=== PATIENT | female | born 1995 | race Caucasian/White ===

== ENCOUNTER → 2020-01-12 | Outpatient (CLI) | payer SELFPAY ==
--- NOTE | 2020-01-12 18:31 | Diagnostic Imaging Report ---
PROCEDURE: MRI left joint lower extremity without contrast. TECHNIQUE: Multiplanar, multisequence non contrast-enhanced MRI of the left lower extremity was accomplished. INDICATION: Knee injury. Evaluate for internal derangement. COMPARISON: No comparison is available. FINDINGS: Alignment of the knee appears appropriate. There are no marrow signal changes present to suggest a fracture or bone contusion. There is no suspicious marrow replacing lesion. There is no significant knee joint effusion. The articular cartilage within the knee demonstrates no evidence of focal thinning or of cartilage defect. Both the anterior and posterior cruciate ligaments appear intact. The morphology of the medial and lateral menisci appear appropriate without evidence of meniscal tear. The medial and lateral collateral ligament complex appear intact with no adjacent edema. Quadriceps and patellar tendons intact. There some minimal prepatellar edema. The regional musculature appears appropriate. There is no periarticular soft tissue mass or fluid collection. IMPRESSION: 1. Normal alignment of the knee without findings of marrow edema, bone contusion or marrow replacing lesion. 2. No significant knee joint effusion. Articular cartilage unremarkable. 3. Cruciate and collateral ligaments appear intact. There are no findings of a meniscal tear. Dictated by: Dictated on workstation # [id number]
== END ==
LOC: RAD 16:05
PROVIDERS: ATTEND Physician Assistant
DX: S89.92XA Unspecified injury of left lower leg, initial encounter (principal)
CPT/HCPCS: 73721

== ENCOUNTER 2023-03-01 23:55 | Emergency (ER) | payer OTHER ==
[~2023-03-01] VITALS: Ht 152.4 cm; Wt 76.2 kg
[2023-03-02 00:03] VITALS: BP 135/83
--- NOTE | 2023-03-02 00:10 | ED Fall/Injury ---
General Stated Complaint: FALL,HIT HEAD Source: patient, family (significant other) History of Present Illness Date Seen by Provider: March 02, 2023 Time Seen by Provider: 00:02 Initial Comments 47-year-old female presents emergency department today for head injury. She was sitting on top of the cab of the truck that was stationary, sitting on the side of the road. She fell off the truck. She braced herself with her arms but hit the back of her head on the pavement. She did not lose consciousness. No nausea or vomiting. No changes in her vision. We did stop the [employer] on the way here and she has had no vomiting. She has been ambulatory without difficulty. All other systems reviewed and negative except documented per HPI. Voice recognition software was used to help create this chart Allergies and Home Medications Patient Home Medication List Home Medication List Reviewed: Yes Review of Systems Review of Systems Constitutional: see HPI Past Lrmystq-Ytwhje-Wpxhuz Hx Patient Social History Tobacco Use?: No Use of E-Cig and/or Vaping dev: No Substance use?: Yes Substance type: Marijuana Alcohol Use?: No Family Medical History Reviewed Nursing Family Hx No Pertinent Family Hx Physical Exam Vital Signs Capillary Refill : Height, Weight, BMI Height: '" Weight: lbs. oz. 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 She is alert oriented with a GCS of 15. No focal neurologic deficits. She has tolerated p.o. without any nausea or vomiting. No loss of consciousness. No indication for imaging at this time. Discharged home in stable condition with supportive care. Impression Primary Impression: Fall Qualified Codes: W19.XXXA - Unspecified fall, initial encounter Additional Impression: Cephalohematoma Disposition: 01 HOME, SELF-CARE Condition: Stable Departure-Patient Inst. Referrals: NO,LOCAL PHYSICIAN (PCP/Family) Primary Care Physician Patient Instructions: Minor Head Injury, Adult ED Add. Discharge Instructions: Use ibuprofen and Tylenol as needed for pain. ARRON YEBOAH DO March 02, 2023 00:10
== END 2023-03-02 00:15 | disposition home or self-care (01) ==
LOC: EDUNIT# 23:55 → ER 03-02
DX: S06.2X0A Diffuse traumatic brain injury without loss of consciousness, initial encounter (principal); R40.2412 Glasgow coma scale score 13-15, at arrival to emergency department; W17.89XA Other fall from one level to another, initial encounter; W22.8XXA Striking against or struck by other objects, initial encounter; Y92.480 Sidewalk as the place of occurrence of the external cause
CPT/HCPCS: 99281